=== PATIENT | male | born 1945 | race Caucasian/White ===

== ENCOUNTER 2023-01-26 10:37 | Outpatient (CLI) | payer MEDICARE, SELFPAY ==
--- NOTE | ~2023-01-26 | US_ITS ---
EXAMINATION: US carotid duplex BI DATE: 01/26/2023 11:41 INDICATION: Encephalopathy with altered mental status and memory loss TECHNIQUE: Grayscale, color Doppler, and pulsed Doppler images of the cervical carotid arteries were obtained. The degree of vessel stenosis is placed in one of the following categories: normal, <50%, 5 0-69%, >=70% but less than near-occlusion, near-occlusion, or total occlusion. Note that percent sten osis relative to normal distal artery lumen diameter is indirectly measured from velocity measurement s as described by Roc, et al. Radiology 2003; 229:340-346. COMPARISON: None. FINDINGS: RIGHT: The right common carotid artery (CCA) peak systolic velocity (PSV) is 70 cm/s. The right internal car otid artery (ICA) PSV is 46 cm/s. The right ICA end-diastolic velocity (EDV) is 12 cm/s. The right IC A/CCA PSV ratio is 0.7. Grayscale and color Doppler images yield an estimate of <50% diameter reducti on from plaque in the ICA. The external carotid artery (ECA) PSV is 91 cm/s. There is antegrade flow in the right vertebral artery. LEFT: The left CCA PSV is 81 cm/s. The left ICA PSV is 59 cm/s. The left ICA EDV is 16 cm/s. The left ICA/C CA PSV ratio is 0.7. Grayscale and color Doppler images yield an estimate of <50% diameter reduction from plaque in the ICA. The ECA PSV is 98 cm/s. There is antegrade flow in the left vertebral artery. IMPRESSION: 1. <50% stenosis in the right internal carotid artery. 2. <50% stenosis in the left internal carotid artery. Reviewed, dictated and finalized at location B.
== END 2023-01-26 10:38 | disposition home or self-care (01) ==
PROVIDERS: PCP Physician Assistant Medical; Visit Provider Physician Assistant Medical
DX: R41.82 Altered mental status, unspecified (principal); R41.3 Other amnesia; I65.23 Occlusion and stenosis of bilateral carotid arteries
CPT/HCPCS: 93880

== ENCOUNTER → 2023-02-02 10:41 | Outpatient (CLI) | payer MEDICARE, SELFPAY ==
--- NOTE | ~2023-02-02 | MR_ITS ---
EXAMINATION: MR brain/brain stem wo/w con DATE: 02/02/2023 11:35 INDICATION: Altered mental status. Memory difficulties. TECHNIQUE: Magnetic resonance imaging (MRI) of the brain and brainstem was performed without and with 20 mL Multihance intravenous contrast. Sequences included sagittal and axial T1-weighted SE, axial d iffusion-weighted FS SE, axial T2*-weighted GRE, axial 3D SWAN, axial T2-weighted FLAIR, and axial T2 -weighted FSE. Postcontrast axial and coronal T1-weighted SE was obtained. Apparent diffusion coeffic ient (ADC) maps were created. COMPARISON: None. FINDINGS: There are no areas of restricted diffusion to suggest acute infarction. No intracranial hemorrhage or abnormal intracranial mass lesion. There are scattered areas of nonspecific increased T2-weighted si gnal intensity in the cerebral white matter, predominantly involving the deep and periventricular whi te matter. There are no intraparenchymal signal abnormalities seen on the other pulse sequences. Symm etric prominence of the sulci and subarachnoid spaces overlying the convexities consistent with mild age-appropriate diffuse cerebral volume loss. The ventricles are symmetric and normal in size. There are no abnormal extra-axial fluid collections. Flow voids are seen in the cerebral arteries on the T 2-weighted sequences consistent with their expected patency. Mild mucosal thickening the bilateral et hmoid and maxillary sinuses. Changes of bilateral intraocular lens replacement. Visualized orbits an d soft tissues are unremarkable. There are no areas of abnormal enhancement on the post contrast imag es. IMPRESSION: 1. No acute intracranial process. 2. Age-related changes including mild diffuse volume loss and mild to moderate nonspecific white gt er T2 hyperintensity which is within normal limits for age and likely sequela of chronic small vessel ischemic disease. Reviewed, dictated and finalized at location A. IMPRESSION: 1. No acute intracranial process. 2. Age-related changes including mild diffuse volume loss and mild to moderate nonspecific white matter T2 hyperintensity which is within normal limits for ag e and likely sequela of chronic small vessel ischemic disease.
== END ==
PROVIDERS: PCP Physician Assistant Medical; Visit Provider Physician Assistant Medical
DX: R41.82 Altered mental status, unspecified (principal)
CPT/HCPCS: 70553; A9577